=== PATIENT | female | born 1935 | race Caucasian/White ===

== ENCOUNTER 2018-06-21 15:06 | Inpatient (IN) | payer MEDICARE, BC ==
--- NOTE | 2018-06-21 15:47 | EDM.PDOC ---
ED HPI GENERAL MEDICAL PROBLEM - General Chief Complaint: Lower Extremity Injury/Pain Stated Complaint: AMBULANCE Time Seen by Provider: 06/21/18 15:40 Source of Information: Reports: Patient History Limitations: Reports: No Limitations - History of Present Illness INITIAL COMMENTS - FREE TEXT/NARRATIVE: patient comes emergency apartment today with complaints of an injury to her left ankle. Just prior to arrival the patient was walking outside when she slipped on ice falling injuring her left ankle. She did "bump" her head on the ground. She did not lose consciousness. She has no head neck or back pain. She has no visual disturbances. She has no nausea no vomiting. She has no weakness dizziness lightheadedness. She denies any abdominopelvic or right lower extremity injury or pain. She does complain of pain to her left ankle. She denies any paresthesias. Left Lower Ankle Pain Score (Numeric/FACES): 4 - Related Data Allergies Allergy/AdvReac Type Severity Reaction Status Date / Time Penicillins Allergy Intermediate Hives Verified 06/21/18 18:43 Home Meds: Home Meds Acetaminophen [Tylenol Arthritis] 650 mg PO Q4HR PRN 06/21/18 [History] Aspirin [Halfprin] 81 mg PO DAILY 06/21/18 [History] Fenofibrate Nanocrystallized [Triglide] 160 mg PO DAILY 06/21/18 [History] Furosemide [Lasix] 20 mg PO ,14 06/21/18 [History] Losartan [Cozaar] 100 mg PO BID 06/21/18 [History] Lutein/Minerals/Vit A,C & E [Ocuvite] 1 tab PO DAILY 06/21/18 [History] Metoprolol Succinate [Toprol XL 100mg] 100 mg PO DAILY 06/21/18 [History] Sertraline HCl [Zoloft] 50 mg PO DAILY 06/21/18 [History] Spironolactone [Aldactone] 25 mg PO DAILY 06/21/18 [History] hydrALAZINE [Apresoline] 50 mg PO DAILY 06/21/18 [History] metFORMIN HCl [Glucophage] 1,000 mg PO BID 06/21/18 [History] Past Medical History HEENT History: Reports: Impaired Vision Cardiovascular History: Reports: Hypertension Endocrine/Metabolic History: Reports: Diabetes, Type II Social & Family History - Tobacco Use Smoking Status *Q: Never Smoker - Caffeine Use Caffeine Use: Reports: Coffee - Recreational Drug Use Recreational Drug Use: No Review of Systems - Review of Systems Review Of Systems: ROS reveals no pertinent complaints other than HPI. ED EXAM, GENERAL - Physical Exam Exam: See Below Exam Limited By: No Limitations General Appearance: Alert, WD/WN Eye Exam: Bilateral Eye: EOMI, Normal Inspection, PERRL (3) Ears: Normal External Exam, Normal Canal, Hearing Grossly Normal, Normal TMs Ear Exam: Bilateral Ear: TM normal Nose: Normal Inspection, Normal Mucosa Throat/Mouth: Normal Inspection, Normal Lips, Normal Oropharynx Head: Atraumatic (no bruising swelling ecchymosis bony deformity crepitus tenderness or any other signs of trauma to the entirety of the head.), Normocephalic Neck: Normal Inspection, Supple, Non-Tender, Full Range of Motion. No: Tender Lateral, Tender Midline Respiratory/Chest: No Respiratory Distress, Lungs Clear, Normal Breath Sounds, No Accessory Muscle Use Cardiovascular: Normal Peripheral Pulses, Regular Rate, Rhythm Peripheral Pulses: 2+: Radial (L), Radial (R), Posterior Tibial (L), Posterior Tibial (R), Dorsalis Pedis (L), Dorsalis Pedis (R) GI/Abdominal: Normal Bowel Sounds, Soft, Non-Tender Back Exam: Normal Inspection (no tenderness with palpation on the posterior midline spine. No other signs of trauma to the posterior.), Full Range of Motion. No: Paraspinal Tenderness, Vertebral Tenderness Extremities: No Pedal Edema, Normal Capillary Refill, Other ( the upper extremities are atraumatic and normal. Her right lower extremity as well. Her left extremity lowerthere is an obvious posteriordeformity with lateral rotation of the ankle joint.She has good CMS the left lower extremity.There is no breaks in the skin there is quite a bit of swelling and ecchymosis are restarted.) ED TRAUMA EXTREMITY PROCEDURES - Joint Reduction Site: Other (Left ankle) Sedation: Conscious Sedation Pre-Procedure NV Status: Normal Post-Procedure NV Status: Normal Technique: Traction/Counter Traction Number of Attempts: 1 Post-Reduction Imaging: Completely Reduced, Acceptably Reduced, Fracture Seen ( Same fractures as previous with excellent reduction. ) Joint Reduction Complications: No (The patient was placed in a well padded fiberglass sugar tong knee down splint in the position of neutral.) Course - Vital Signs Last Recorded V/S: Last Vital Signs Temp 35.7 C 06/22/18 08:00 Pulse 63 06/22/18 08:00 Resp 18 06/22/18 08:00 BP 106/55 L 06/22/18 08:00 Pulse Ox 86 L 06/22/18 08:00 - Orders/Labs/Meds Orders: Active Orders 24 hr Category Date Time Status Fluoro Up To 1Hr [CR] Urgent Exams 06/21/18 16:39 Taken Medication Orders Acetaminophen (Tylenol) 650 mg PO Q6H PRN PRN Reason: Pain (mild 1-3) Last Admin: 06/22/18 04:46 Dose: 650 mg Admin: 06/21/18 23:05 Dose: 650 mg Aspirin (Halfprin) 81 mg PO DAILY [facility] Enoxaparin Sodium (Lovenox) 40 mg SUBCUT DAILY [facility] Last Admin: 06/21/18 19:58 Dose: 40 mg Fenofibrate (Tricor) 145 mg PO DAILY [facility] Hydralazine HCl (Apresoline) 50 mg PO DAILY [facility] Insulin Human Lispro (Humalog) 0 unit SUBCUT TIDMEALS [facility]; Protocol Losartan Potassium (Cozaar) 100 mg PO BID [facility] Last Admin: 06/21/18 20:13 Dose: 100 mg Metformin HCl (Glucophage) 1,000 mg PO BID@0700,1900 [facility] Last Admin: 06/21/18 19:59 Dose: 1,000 mg Metoprolol Succinate (Toprol Xl) 100 mg PO DAILY [facility] Morphine Sulfate (Morphine) 2 mg IV Q2H PRN PRN Reason: PAIN Last Admin: 06/22/18 04:47 Dose: 2 mg Admin: 06/21/18 23:06 Dose: 2 mg Multivitamins/Minerals (I-Noa) 1 each PO DAILY [facility] Oxycodone HCl (Oxycodone) 5 mg PO Q4H PRN PRN Reason: Pain (moderate 4-6) Last Admin: 06/22/18 04:47 Dose: 5 mg Admin: 06/21/18 23:06 Dose: 5 mg Sertraline HCl (Zoloft) 50 mg PO DAILY [facility] Sodium Chloride (Saline Flush) 10 ml FLUSH ASDIRECTED PRN PRN Reason: Keep Vein Open Spironolactone (Aldactone) 25 mg PO DAILY [facility] Labs: Laboratory Tests 06/21/18 06/21/18 06/21/18 Range/Units 15:23 15:23 15:23 WBC 9.7 (5.0-10.0) 10^3/uL RBC 4.69 (4.2-5.4) 10^6/uL Hgb 14.4 (12.0-16.0) g/dL Hct 42.5 (37.0-47.0) % MCV 90.6 (80-100) fL MCH 30.7 (27.0-34.0) pg MCHC 33.9 (33.0-35.0) g/dL Plt Count 291 (150-450) 10^3/uL Neut % (Auto) 80.7 H (42.2-75.2) % Lymph % (Auto) 11.5 L (20.5-50.1) % Desha % (Auto) 6.8 (2-8) % Eos % (Auto) 0.8 L (1.0-3.0) % Baso % (Auto) 0.2 (0.0-1.0) % PT 9.6 (9.0-12.0) SEC INR 1.0 (0.9-1.2) Sodium 131 L (135-145) mmol/L Potassium 3.7 (3.6-5.0) mmol/L Chloride 100 L (101-111) mmol/L Carbon Dioxide 18.0 L (21.0-31.0) mmol/L Anion Gap 16.7 BUN 19 H (7-18) mg/dL Creatinine 0.9 (0.6-1.3) mg/dL Est Cr Clr Drug Dosing 43.56 mL/min Estimated GFR (MDRD) 60 BUN/Creatinine Ratio 21.11 Glucose 223 H (74-105) mg/dL Calcium 10.1 (8.4-10.2) mg/dl Total Bilirubin 1.0 (0.2-1.0) mg/dL AST 33 (10-42) IU/L ALT 18 (10-60) IU/L Alkaline Phosphatase 72 (42-121) IU/L Total Protein 6.8 (6.7-8.2) g/dl Albumin 4.2 (3.2-5.5) g/dl Globulin 2.6 Albumin/Globulin Ratio 1.62 Meds: Medications Generic Name Dose Route Start Last Admin Trade Name Shameka PRN Reason Stop Dose Admin Acetaminophen 650 mg 06/21/18 18:31 06/22/18 04:46 Tylenol PO 650 mg Q6H PRN Administration Pain (mild 1-3) Aspirin 81 mg 06/22/18 09:00 Halfprin PO DAILY [facility] Enoxaparin Sodium 40 mg 06/21/18 19:00 06/21/18 19:58 Lovenox SUBCUT 40 mg DAILY [facility] Administration Fenofibrate 145 mg 06/22/18 09:00 Tricor PO DAILY [facility] Hydralazine HCl 50 mg 06/22/18 09:00 Apresoline PO DAILY [facility] Insulin Human Lispro 0 unit 06/22/18 08:00 Humalog SUBCUT TIDMEALS [facility] Protocol Losartan Potassium 100 mg 06/21/18 21:00 06/21/18 20:13 Cozaar PO 100 mg BID [facility] Administration Metformin HCl 1,000 mg 06/21/18 21:00 06/21/18 19:59 Glucophage PO 1,000 mg BID@0700,1900 [facility] Administration Metoprolol Succinate 100 mg 06/22/18 09:00 Toprol Xl PO DAILY [facility] Morphine Sulfate 2 mg 06/21/18 20:00 06/22/18 04:47 Morphine IV 2 mg Q2H PRN Administration PAIN Multivitamins/Minerals 1 each 06/22/18 09:00 I-Noa PO DAILY [facility] Oxycodone HCl 5 mg 06/21/18 18:31 06/22/18 04:47 Oxycodone PO 5 mg Q4H PRN Administration Pain (moderate 4-6) Sertraline HCl 50 mg 06/22/18 09:00 Zoloft PO DAILY [facility] Sodium Chloride 10 ml 06/21/18 18:29 Saline Flush FLUSH ASDIRECTED PRN Keep Vein Open Spironolactone 25 mg 06/22/18 09:00 Aldactone PO DAILY [facility] Discontinued Medications Generic Name Dose Route Start Last Admin Trade Name Shameka PRN Reason Stop Dose Admin Morphine Sulfate 2 mg 06/21/18 15:56 06/21/18 19:58 Morphine IV 06/21/18 15:57 Not Given NOW STA Morphine Sulfate 1 mg 06/21/18 18:31 Morphine IVPUSH Q2H PRN Pain (severe 7-10) Morphine Sulfate 2 mg 06/21/18 19:46 06/21/18 19:58 Morphine IV 06/21/18 19:47 Not Given NOW STA Morphine Sulfate 2 mg 06/21/18 19:52 06/21/18 19:57 Morphine IV 06/21/18 19:53 2 mg NOW STA Administration Ondansetron HCl 4 mg 06/21/18 15:56 06/21/18 19:57 Zofran IV 06/21/18 15:57 4 mg ONETIME ONE Administration Ondansetron HCl 4 mg 06/21/18 20:00 06/21/18 19:59 Zofran IV 06/21/18 20:01 Not Given ONETIME ONE - Radiology Interpretation Free Text/Narrative:: x-ray of the left ankle per radiology shows a large avulsed fracture off the posterior malleolus distal tibia. Distal diaphyseal fibular fracture and complete anterior dislocation of the distal tibia off the dome of the talus. postreduction x-ray distal tibia satisfactorily relocated.Optimal near anatomic alignment of the distal fibula. Posterior malleolus and now visualized medial malleolus fracture fragments. Some asymmetry of the tibiotalar mortise joint reflecting tendon injury. - Re-Assessments/Exams Free Text/Narrative Re-Assessment/Exam: 06/21/18 patient initially denies anything for pain and she has none when she is just sitting still. I relayed the findings of the rather impressively trimalleolar fracture of the left ankle with dislocation as well to the patient. due to the dislocation and the multiple fragments reduction is paramount at this time.Risk and benefits of procedural sedation by anesthesia as well as closed reduction of the left ankle was explained to the patient. Her questions are answered. Written and verbal consent was obtained. the patient awoke from anesthesia unremarkably. A sugar tong splint was placed in the foot placed in neutral position. She had good CMS following the relocation. She had minimal to no pain. Did speak with Dr. Trent who is the orthopedic environmental service aide in [place]. He is very happy with the relocation and reduction of the fracture fragments. Although with the rather impressively amount of fractures and dislocation he has concerns for swelling and would not operate acutely on this patient. he would like to see her in the clinic middle of next week. I explained this to the patient she was comfortable with this plan. Although we are unable to get her home is a [place] We will admit her under observation for tonight for pain management also to see physical therapy and occupational therapy to assist with home while she is waiting to have surgery. I spoke with Dr. Martin the hospitalist environmental service aide. He accepted the patient at this time under his care here in [place]. Departure - Departure Time of Disposition: 17:00 Disposition: Refer to Observation Clinical Impression: Trimalleolar fracture of ankle, closed Qualifiers: Encounter type: initial encounter Laterality: left Qualified Code(s): S82.852A - Displaced trimalleolar fracture of left lower leg, initial encounter for closed fracture Dislocation of ankle joint Qualifiers: Encounter type: initial encounter Laterality: left Qualified Code(s): S93.05XA - Dislocation of left ankle joint, initial encounter - Discharge Information - My Orders Last 24 Hours: My Active Orders 06/21/18 16:39 Fluoro Up To 1Hr [CR] Urgent - Assessment/Plan Last 24 Hours: My Active Orders 06/21/18 16:39 Fluoro Up To 1Hr [CR] Urgent Assessment:: Left trimalleolar fracture left ankle dislocation moderate sedation by anesthesia. Closed reduction and relocation of the injuries above by myself Lower extremity splinting by myself. Plan: To observation with Dr. Martin.
[2018-06-21] MEDS ORDERED: Ondansetron 4 MG/2 ML SDV IV ONE ×2 (15:56→20:00)
[2018-06-21] MEDS ORDERED: Morphine 10 MG/ML SDV IV STA ×2 (15:56→19:46)
--- NOTE | 2018-06-21 16:01 | CR ---
Clinical history: 83-year-old female emergency department left ankle deformity associated with fall. Interpretation: Markedly abnormal fracture/dislocation left ankle. Blood circulation to the foot? Bimalleolar soft tissue swelling with large ankle joint effusion. Large fracture fragment avulsed off the posterior malleolus distal tibia; distal diaphyseal fibular fracture; and, complete anterior dislocation of the distal tibia off the dome of the talus (tibiotalar mortise joint dislocation). Talonavicular and calcaneocuboid articulations intact. Chronic hypertrophic arthritic changes mid foot. Large heel spur at the insertion plantar aponeurosis base of the os calcis. No foreign bodies.
--- NOTE | 2018-06-21 16:49 | CR ---
Clinical history: 83-year-old female with trimalleolar fracture and left ankle dislocation. Post reduction exam. Interpretation: Satisfactory post reduction result. Good job. Distal tibia satisfactorily relocated (dislocation reduced) relative to the dome of the talus and optimal near anatomic apposition/alignment of the spiral distal fibular, posterior malleolar and now visualized medial malleolar fracture fragments. Large bone spur insertion plantar aponeurosis base of the os calcis. Slight asymmetry of the tibiotalar mortise joint presumably reflecting tendon injury. Bimalleolar soft tissue swelling and large ankle joint effusion.
[2018-06-21 16:57] LABS: ANION GAP 16.7
[2018-06-21] MEDS ORDERED: Sodium Chloride 0.9% 10 ML Syringe FLUSH PRN (18:29)
[2018-06-21] MEDS ORDERED: Morphine 2 MG/ML Syringe IVPUSH PRN (18:31)
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
[2018-06-21] MEDS ORDERED: Morphine 2 MG/ML Syringe IV STA (19:52)
[2018-06-21] MEDS: Enoxaparin 40 MG/0.4 ML Syringe SUBCUT SCH (19:58)
[2018-06-21] MEDS: metFORMIN 500 MG Tab PO SCH (19:59)
[2018-06-21] MEDS: Losartan 50 MG Tab PO SCH (20:13)
[2018-06-21] MEDS: Acetaminophen 325 MG Tab PO PRN ×2 (20:14→23:05)
[2018-06-21] MEDS: oxyCODONE 5 MG Tab PO PRN (23:06)
[2018-06-21] MEDS: Morphine 2 MG/ML Syringe IV PRN (23:06)
[2018-06-22] MEDS: Acetaminophen 325 MG Tab PO PRN (04:46)
[2018-06-22] MEDS: Morphine 2 MG/ML Syringe IV PRN ×2 (04:47→21:00)
[2018-06-22] MEDS: oxyCODONE 5 MG Tab PO PRN ×2 (04:47→18:21)
[2018-06-22] MEDS: Enoxaparin 40 MG/0.4 ML Syringe SUBCUT SCH (10:33)
[2018-06-22] MEDS: Losartan 50 MG Tab PO SCH ×2 (10:34→21:12)
[2018-06-22] MEDS: Metoprolol Succinate 50 MG Tab.ER PO SCH (10:36)
[2018-06-22] MEDS: Fenofibrate Nanocrystallized 145 MG Tab PO SCH (10:37)
[2018-06-22] MEDS: Lutein/Minerals/Vit A,C & E Tab PO SCH (10:37)
[2018-06-22] MEDS: Aspirin 81 MG Tab.EC PO SCH (10:37)
[2018-06-22] MEDS: hydrALAZINE 25 MG Tab PO SCH (10:38)
[2018-06-22] MEDS: Sertraline 50 MG Tab PO SCH (10:39)
[2018-06-22] MEDS: Spironolactone 25 MG Tab PO SCH (10:40)
[2018-06-22] MEDS: metFORMIN 500 MG Tab PO SCH ×2 (10:46→18:21)
[2018-06-22] MEDS: Insulin Lispro 100 Units/ML 3 ML Vial SUBCUT SCH ×3 (10:49→18:03)
[2018-06-23] MEDS: Insulin Lispro 100 Units/ML 3 ML Vial SUBCUT SCH ×3 (08:26→17:21)
[2018-06-23] MEDS: Enoxaparin 40 MG/0.4 ML Syringe SUBCUT SCH (08:27)
[2018-06-23] MEDS: Aspirin 81 MG Tab.EC PO SCH (08:27)
[2018-06-23] MEDS: Lutein/Minerals/Vit A,C & E Tab PO SCH (08:27)
[2018-06-23] MEDS: Fenofibrate Nanocrystallized 145 MG Tab PO SCH (08:27)
[2018-06-23] MEDS: Sertraline 50 MG Tab PO SCH (08:28)
[2018-06-23] MEDS: metFORMIN 500 MG Tab PO SCH ×3 (08:28→18:36)
[2018-06-23] MEDS: Spironolactone 25 MG Tab PO SCH (08:28)
[2018-06-23] MEDS: hydrALAZINE 25 MG Tab PO SCH (08:31)
[2018-06-23] MEDS: Losartan 50 MG Tab PO SCH ×2 (08:31→21:19)
[2018-06-23] MEDS: Metoprolol Succinate 50 MG Tab.ER PO SCH (08:31)
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
[2018-06-23] MEDS: oxyCODONE 5 MG Tab PO PRN ×3 (10:56→21:19)
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
[2018-06-23] MEDS ORDERED: Nystatin Crm 15 GM Tube TOP PRN (12:37)
[2018-06-24] MEDS: Pantoprazole 40 MG Tab.CR PO SCH (06:19)
[2018-06-24] MEDS: oxyCODONE 5 MG Tab PO PRN ×3 (08:23→20:35)
[2018-06-24] MEDS: Lutein/Minerals/Vit A,C & E Tab PO SCH (08:23)
[2018-06-24] MEDS: Sertraline 50 MG Tab PO SCH (08:24)
[2018-06-24] MEDS: Spironolactone 25 MG Tab PO SCH (08:24)
[2018-06-24] MEDS: Enoxaparin 40 MG/0.4 ML Syringe SUBCUT SCH (08:24)
[2018-06-24] MEDS: Insulin Lispro 100 Units/ML 3 ML Vial SUBCUT SCH ×3 (08:25→17:26)
[2018-06-24] MEDS: hydrALAZINE 25 MG Tab PO SCH (08:27)
[2018-06-24] MEDS: metFORMIN 500 MG Tab PO SCH ×2 (08:27→17:27)
[2018-06-24] MEDS: Losartan 50 MG Tab PO SCH ×2 (08:28→20:34)
[2018-06-24] MEDS: Metoprolol Succinate 50 MG Tab.ER PO SCH (08:28)
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
[2018-06-24] MEDS ORDERED: Furosemide 40 MG/4 ML VIAL IVPUSH ONE (11:13)
[2018-06-24] MEDS: Acetaminophen 325 MG Tab PO PRN (20:35)
[2018-06-25] MEDS: Pantoprazole 40 MG Tab.CR PO SCH (05:35)
[2018-06-25] MEDS: oxyCODONE 5 MG Tab PO PRN (05:35)
[2018-06-25] MEDS: Acetaminophen 325 MG Tab PO PRN ×2 (05:36→12:19)
[2018-06-25] MEDS: Lutein/Minerals/Vit A,C & E Tab PO SCH (08:05)
[2018-06-25] MEDS: Losartan 50 MG Tab PO SCH (08:05)
[2018-06-25] MEDS: metFORMIN 500 MG Tab PO SCH (08:06)
[2018-06-25] MEDS: Metoprolol Succinate 50 MG Tab.ER PO SCH (08:06)
[2018-06-25] MEDS: Spironolactone 25 MG Tab PO SCH (08:07)
[2018-06-25] MEDS: Sertraline 50 MG Tab PO SCH (08:07)
[2018-06-25] MEDS: hydrALAZINE 25 MG Tab PO SCH (08:07)
[2018-06-25] MEDS: Enoxaparin 40 MG/0.4 ML Syringe SUBCUT SCH (08:07)
[2018-06-25] MEDS: Insulin Lispro 100 Units/ML 3 ML Vial SUBCUT SCH ×2 (08:13→12:18)
[2018-06-25] MEDS ORDERED: Furosemide 20 MG Tab PO SCH (09:00)
[2018-06-25] MEDS ORDERED: Etomidate 2 MG/ML 20 ML SDV IVPUSH ONE (11:55)
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
[2018-06-25] MEDS ORDERED: Insulin Glarg,Human.Rec.Analog 100 UNIT/ML ML SUBCUT SCH (17:00)
== END 2018-06-25 13:00 | DRG 563 ==
LOC: DL.ED 15:06 → UNDOADMOB 17:41 → DL.MS 17:41 → OBSVTOIN 06-22 12:53
PROVIDERS: ADMIT Internal Medicine; ATTEND Hospitalist
PROC: 0QSHXZZ Reposition Left Tibia, External Approach (ICD-10-PCS; principal; 2018-06-22)
PROC: 0QSKXZZ Reposition Left Fibula, External Approach (ICD-10-PCS; 2018-06-22)
PROC: F08Z4ZZ Home Management Treatment (ICD-10-PCS; 2018-06-22)
DX: S82.52XA Displaced fracture of medial malleolus of left tibia, initial encounter for closed fracture (principal); I50.22 Chronic systolic (congestive) heart failure; S82.402A Unspecified fracture of shaft of left fibula, initial encounter for closed fracture; I11.0 Hypertensive heart disease with heart failure; H54.7 Unspecified visual loss; E11.9 Type 2 diabetes mellitus without complications; E78.5 Hyperlipidemia, unspecified; K21.9 Gastro-esophageal reflux disease without esophagitis; W00.9XXA Unspecified fall due to ice and snow, initial encounter; S93.05XA Dislocation of left ankle joint, initial encounter; Z79.82 Long term (current) use of aspirin; Z79.899 Other long term (current) drug therapy; Z79.84 Long term (current) use of oral hypoglycemic drugs; Z88.0 Allergy status to penicillin
CPT/HCPCS: 01462; 36415; 51702; 73600-LT; 73610-LT; 76000; 80053; 82962; 85025; 85610; 96372; 96374; 96375; 96376; 97162-GP; 97166-GO; 99285-25; A9270-GY; G0378; J1650; J1815; J1940; J2270; J2405; J3490

== ENCOUNTER 2021-07-16 12:39 | Emergency (ER) | payer MEDICARE, BC ==
[2021-07-16] MEDS ORDERED: Sodium Chloride 0.9% 10 ML Syringe FLUSH PRN (12:50)
[2021-07-16] MEDS ORDERED: Iopamidol 755 Mg/ML 100 ML Bottle IVPUSH ONE (12:53)
[2021-07-16 13:25] LABS: PTT,PARTIAL THROMBOPLSTIN TIME 21.9 SEC (22.0-34.0)
== END 2021-07-16 14:45 | disposition home or self-care (01) ==
LOC: DL.ED 12:39
DX: R06.02 Shortness of breath (principal); E11.9 Type 2 diabetes mellitus without complications; I10 Essential (primary) hypertension; Z88.0 Allergy status to penicillin; Z79.82 Long term (current) use of aspirin; Z79.84 Long term (current) use of oral hypoglycemic drugs; Z79.899 Other long term (current) drug therapy
CPT/HCPCS: 36415; 71260; 81001; 82947; 84484; 85610; 85730; 87086; 99285; Q9967

== ENCOUNTER 2023-07-31 13:40 | Emergency (ER) | payer MEDICARE, BC ==
[2023-07-31] MEDS: Sodium Chloride 0.9% 10 ML Syringe FLUSH PRN (14:26)
[2023-07-31 14:27] LABS: BASOPHILS PERCENT AUTO 0.1 % (0.0-1.0); HEMATOCRIT 33.7 % (37.0-47.0); HEMOGLOBIN 11.1 g/dL (12.0-16.0); LYMPHOCYTES PERCENT AUTO 3.7 % (20.5-50.1); MEAN CORPUSCULAR HEMOGLOBIN 31.5 pg (27.0-34.0); MEAN CORPUSCULAR HGB CONC 32.9 g/dL (33.0-35.0); MEAN CORPUSCULAR VOLUME 95.7 fL (80-100); MONOCYTES PERCENT AUTO 7.8 % (2-8); NEUTROPHILS PERCENT AUTO 88.4 % (42.2-75.2); PLATELET COUNT,PLT 294 10^3/uL (150-450); RED BLOOD CELL COUNT 3.52 10^6/uL (4.2-5.4); WHITE BLOOD CELL COUNT,WBC 13.4 10^3/uL (5.0-10.0)
[2023-07-31] MEDS: Sodium Chloride 0.9% 1,000 ML IV ONE (14:27)
[2023-07-31 14:29] LABS: APPEARANCE,URINE CLEAR (CLEAR); BILIRUBIN,URINE NEGATIVE (NEGATIVE); COLOR,URINE YELLOW (YELLOW); GLUCOSE,URINE 500 (NEGATIVE); KETONES,URINE TRACE (NEGATIVE); LEUKOCYTE ESTERASE,URINE NEGATIVE (NEGATIVE); NITRITE,URINE NEGATIVE (NEGATIVE); OCCULT BLOOD,URINE NEGATIVE (NEGATIVE); PROTEIN,URINE 100 (NEGATIVE); UROBILINOGEN,URINE 0.2 mg/dL (0.2-1.0)
[2023-07-31 14:38] LABS: BACTERIA,URINE FEW /HPF (0-FEW/HPF); EPITHELIAL CELLS,URINE FEW /HPF (NOT SEEN); RBC,URINE 0-5 /HPF (0-5)
[2023-07-31 14:41] LABS: PROTHROMBIN TIME 10.4 SEC (9.0-12.0)
[2023-07-31 14:47] LABS: A/G RATIO 1.4; BILIRUBIN TOTAL 0.8 mg/dL (0.2-1.0); BUN/CREATININE RATIO 20.3 (No establ ref range); CALCIUM 11.1 mg/dL (8.5-10.1); CREATININE 1.33 mg/dL (0.55-1.02); EST CRCL DRUG DOSING (CG) 26.84 mL/min; MAGNESIUM 1.3 mg/dL (1.8-2.4); PROTEIN TOTAL,TP 6.9 g/dL (6.4-8.2)
[2023-07-31 14:59] LABS: HEMOGLOBIN A1C 6.8 % (<5.7)
[2023-07-31] MEDS ORDERED: 50% Dextrose in Water 50 ML Syringe IVPUSH PRN (15:03)
[2023-07-31] MEDS ORDERED: Glucagon,Human Recombinant 1 MG Vial IM PRN (15:03)
[2023-07-31] MEDS: cefTRIAXone 1 GM Vial IVPUSH ONE (15:15)
[2023-07-31] MEDS: Insulin Regular, Human 100 Units/ML 3 ML Vial IV ONE (15:15)
[2023-07-31 16:09] LABS: B-TYPE NATRIURETIC PEPTIDE,BNP 828 pg/ml (0-100)
[2023-07-31] MEDS: Tranexamic Acid 2,000 MG in Sodium Chloride 0.9% 100 ML IV ONE (17:53)
[2023-07-31] MEDS: Ondansetron 4 MG/2 ML SDV IVPUSH ONE (18:17)
== END 2023-07-31 18:26 ==
LOC: DL.ED 13:40
DX: S22.42XA Multiple fractures of ribs, left side, initial encounter for closed fracture (principal); J94.2 Hemothorax; S50.02XA Contusion of left elbow, initial encounter; S40.012A Contusion of left shoulder, initial encounter; E78.00 Pure hypercholesterolemia, unspecified; I10 Essential (primary) hypertension; E11.9 Type 2 diabetes mellitus without complications; Z88.0 Allergy status to penicillin; Z79.899 Other long term (current) drug therapy; Z79.84 Long term (current) use of oral hypoglycemic drugs; W19.XXXA Unspecified fall, initial encounter
CPT/HCPCS: 36415; 71045; 71250; 72170; 74176; 80053; 81001; 82550; 82947; 83036; 83525; 83605; 83735; 83880; 84484; 85025; 85610; 93005; 96361; 96374; 96375; 99285; J0696; J1815; J2405; J3490; J7030; 93010